=== PATIENT | female | born 1955 | race Asian ===

== ENCOUNTER 2016-12-31 08:25 | Inpatient (IN) | payer OTHER ==
--- NOTE | 2016-12-21 23:36 | HP ---
HISTORY AND PHYSICAL: DATE OF ADMISSION/SURGERY: 12/31/16 SURGEON: Joana Stoddard MD * (DICTATED BY MARTHA MAKI) PROCEDURE: Left total knee arthroplasty. CHIEF COMPLAINT: Left knee pain. HISTORY OF PRESENT ILLNESS: Ms. Lau is a 61-year-old female with complaints of left knee pain secondary to advanced osteoarthritis. She has failed conservative management and has elected to proceed with a left total knee arthroplasty, which is scheduled for 12/31/[address] Stoddard. PAST MEDICAL HISTORY: Obesity, sleep apnea, diabetes, and osteoarthritis. PAST SURGICAL HISTORY: Right knee arthroscopy. CURRENT MEDICATIONS: 1. Metformin 500 mg twice a day. 2. Lovastatin 40 mg q.h.s. 3. Lantus 100 units/mL as directed. 4. Humalog 100 units/mL sliding scale. 5. Telmisartan 40 mg once a day. 6. Voltaren gel. ALLERGIES: PENICILLIN and CODEINE. CODEINE causes nausea and vomiting. FAMILY HISTORY: Uterine cancer. SOCIAL HISTORY: She is a 61-year-old female. She lives with her . She does not smoke, use drugs, or alcohol. She is a speech language pathology assistant. REVIEW OF SYSTEMS: A complete 14-point review of systems was reviewed with the patient, it was positive for diabetes. PHYSICAL EXAMINATION GENERAL: She is well developed, well nourished, in no acute distress. VITAL SIGNS: She stands 5 feet 8 inches tall, weighs 220 pounds. Her blood pressure is 123/80, her heart rate is 78. HEENT: Normocephalic, atraumatic. NECK: Supple. PULMONARY: The lungs are clear to auscultation bilaterally. CARDIO: Regular rate and rhythm. Strong S1, S2. ABDOMEN: Soft, nontender, and nondistended. MUSCULOSKELETAL: Left lower extremity, the skin is intact. There are no open wounds or abrasions. She has a moderate joint effusion. Tenderness over the medial and lateral joint line. No varus or valgus instability. 0 to 125 degrees flexion. 2+ dorsalis pedis pulses, intact sensation. Her lower extremity muscle group strengths are intact at 5/5. NEUROLOGICAL: Alert and oriented x3. Cranial nerves II through XII are intact. ASSESSMENT AND PLAN: Ms. Lau is a 61-year-old female with severe degenerative osteoarthritis of her left knee. She has failed conservative management and has elected to proceed with a left total knee arthroplasty, which is scheduled for 12/31/[address] Stoddard discussed the risks and benefits of the surgery at today's visit and all of her questions were answered. Coumadin, Percocet, and Colace were sent to her pharmacy for postoperative pain control and DVT prophylaxis. She will see Dr. Stoddard back 2 weeks after the surgery. MARTHA MAKI [id number]/[facility] #: [id number] MTDBriana
[~2016-12-31 08:25] MED LIST: Buffered Lidocaine 0.9% SYRIN* 5 ML/SYR SYRINGE INTRADERM ONE; Sodium Citrate/Citric Acid* 15 ML UDC PO ONE
[2016-12-31] MEDS ORDERED: Clindamycin 900 MG IVPREMIX(* 900 MG/50 ML SDV IV ONE (08:45)
[2016-12-31] MEDS ORDERED: Sodium Citrate/Citric Acid* 15 ML UDC ONE (08:45)
[2016-12-31] MEDS ORDERED: Midazolam* 1 MG/ML 2 ML VIAL (2 MG) ONE (11:54)
[2016-12-31] MEDS ORDERED: Morphine PF AMP (0.5MG/ML)* 5 MG/10 ML AMP ONE (11:58)
[2016-12-31] MEDS ORDERED: Propofol* 10 MG/ML 20 ML BTL IV PUSH ONE (12:49)
[2016-12-31] MEDS ORDERED: Naloxone* 0.4 MG/ML 1 ML VIAL IV PRN (13:11)
[2016-12-31] MEDS ORDERED: Ondansetron INJ* 2 MG/ML VIAL IV PRN (13:11)
[2016-12-31] MEDS ORDERED: Bupivacaine 0.5% SDV PF* 30 ML VIAL ONE (14:00)
[2016-12-31] MEDS ORDERED: Phenylephrine IV* 40 MCG/ML 10 ML SYRINGE ONE (14:19)
[2016-12-31] MEDS ORDERED: Phenylephrine INJ* 10 MG/ML 1 ML VIAL (10 MG) ONE (14:19)
[2016-12-31] MEDS ORDERED: Magnesium Hydroxide LIQ* 30 ML UDC PO PRN (14:55)
[2016-12-31] MEDS ORDERED: Acetaminophen TAB* 325 MG PO PRN (14:55)
[2016-12-31] MEDS ORDERED: Polyethylene Glycol 3350* 17 GM PACKET PO PRN (14:55)
[2016-12-31] MEDS ORDERED: diPHENhydraMINE IV* 50 MG/ML 1 ml VIAL (BENADRYL) IV PRN (14:55)
[2016-12-31] MEDS ORDERED: Bisacodyl SUPP* 10 MG SUPP PR PRN (14:55)
[2016-12-31] MEDS ORDERED: Ondansetron INJ* 2 MG/ML VIAL ONE (14:56)
[2016-12-31] MEDS ORDERED: DiMENhydriNATE IV* 50 MG/ML VIAL ONE (15:18)
[2016-12-31] MEDS ORDERED: Dextrose 50% Syringe 50 ML* 25 GM/50 ML SYRINGE IV PUSH PRN (15:31)
--- NOTE | 2016-12-31 15:37 | RAD ---
INDICATION: Left total knee replacement COMPARISON: December 21, 2016 TECHNIQUE: A two-view portable examination is submitted. FINDINGS: There is interval left knee arthroplasty. Both femoral and tibial components appear well seated. There is an overlying cooling jacket. IMPRESSION: LEFT KNEE ARTHROPLASTY.
[2016-12-31] MEDS ORDERED: Insulin LISPRO* 1 UNITS UNIT SUBCUT SCH (18:00)
[2016-12-31] MEDS: Insulin LISPRO* 1 UNITS UNIT SUBCUT SCH ×3 (19:54→23:33)
[2016-12-31] MEDS ORDERED: Scopolamine 1.5 mg* PATCH TRANSDERM SCH (20:00)
[2016-12-31] MEDS ORDERED: Metoclopramide IV* 5 MG/ML 2 ML VIAL IV ONE (20:00)
[2016-12-31] MEDS ORDERED: Warfarin TAB(*) 6 MG PO ONE (20:00)
[2016-12-31] MEDS: Insulin GLARGINE(*) 1 UNITS UNIT SUBCUT SCH (20:13)
[2016-12-31] MEDS ORDERED: Metformin ER (NF) 500 MG TAB PO SCH (21:00)
[2016-12-31] MEDS ORDERED: Morphine INJ* 2 MG/ML 1 ML SYRINGE ONE (21:10)
[2016-12-31] MEDS: Clindamycin 600 MG IVPREMIX(* 600 MG/50 ML SDV IV SCH (21:34)
[2016-12-31] MEDS: Docusate CAP* 100 MG PO SCH (21:43)
[2016-12-31] MEDS: Morphine INJ* 2 MG/ML 1 ML SYRINGE IV PRN (23:01)
[2016-12-31] MEDS: HYDROcodone/ACETAMIN 5-325 MG* 1 TAB PO PRN (23:37)
[2017-01-01] MEDS: HYDROcodone/ACETAMIN 5-325 MG* 1 TAB PO PRN (03:35)
[2017-01-01] MEDS: Morphine INJ* 2 MG/ML 1 ML SYRINGE IV PRN ×2 (03:36→21:07)
[2017-01-01] MEDS: Insulin LISPRO* 1 UNITS UNIT SUBCUT SCH ×6 (03:49→18:49)
[2017-01-01] MEDS ORDERED: oxyCODONE/Acetamin 5/325 MG* TAB PO PRN (04:10)
[2017-01-01] MEDS: Clindamycin 600 MG IVPREMIX(* 600 MG/50 ML SDV IV SCH ×2 (04:31→11:39)
[2017-01-01 06:29] LABS: Hematocrit 31 % (35-47); Hemoglobin 9.9 g/dl (12.0-16.0)
[2017-01-01 06:40] LABS: Calcium 8.6 mg/dL (8.6-10.3); EGFR African American 185.7 (>60); EGFR Non-African American 144.4 (>60); Potassium 4.1 mmol/L (3.5-5.0)
[2017-01-01] MEDS: Ondansetron INJ* 2 MG/ML VIAL IV PRN ×2 (07:34→12:25)
[2017-01-01] MEDS: oxyCODONE/Acetamin 5/325 MG* TAB PO PRN ×4 (07:34→21:00)
--- NOTE | 2017-01-01 07:46 | PN ---
Progress Note - Progress Note Date of Service: 01/01/17 SOAP: Subjective: Pt. c/o nausea and vomiting. Objective: LLE - drain removed, tip intact, distally +df/pf, full sens lt, 2+ dp pulse. Vital Signs: Temp Pulse Resp BP Pulse Ox 97.9 F 69 18 156/83 98 01/01/17 03:30 01/01/17 03:30 01/01/17 07:34 01/01/17 03:30 01/01/17 03:30 Laboratory Results - last 24 hr 12/31/16 12/31/16 12/31/16 08:53 12:25 15:16 Hgb Hct INR (Anticoag Therapy) Sodium Potassium Chloride Carbon Dioxide Anion Gap BUN Creatinine Est GFR ( Amer) Est GFR (Non-Af Amer) BUN/Creatinine Ratio Glucose POC Glucose (mg/dL) 253 H 238 H 186 H Calcium 12/31/16 12/31/16 01/01/17 19:55 23:23 03:40 Hgb Hct INR (Anticoag Therapy) Sodium Potassium Chloride Carbon Dioxide Anion Gap BUN Creatinine Est GFR ( Amer) Est GFR (Non-Af Amer) BUN/Creatinine Ratio Glucose POC Glucose (mg/dL) 289 H 276 H 238 H Calcium 01/01/17 01/01/17 01/01/17 06:04 06:04 06:04 Hgb 9.9 L Hct 31 L INR (Anticoag Therapy) 0.99 Sodium 129 L Potassium 4.1 Chloride 98 L Carbon Dioxide 23 Anion Gap 8 BUN 11 Creatinine 0.44 L Est GFR ( Amer) 185.7 Est GFR (Non-Af Amer) 144.4 BUN/Creatinine Ratio 25.0 H Glucose 215 H POC Glucose (mg/dL) Calcium 8.6 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
[2017-01-01] MEDS ORDERED: PROCHLORPERAZINE INJ 5 MG/ML 2 ML VIAL IV PRN (08:30)
[2017-01-01] MEDS ORDERED: PROCHLORPERAZINE INJ 5 MG/ML 2 ML VIAL ONE (08:31)
[2017-01-01] MEDS: Losartan TAB* 25 MG PO SCH (08:50)
[2017-01-01] MEDS: Docusate CAP* 100 MG PO SCH ×2 (08:50→21:00)
[2017-01-01] MEDS: Atorvastatin* 20 MG TAB PO SCH (08:50)
[2017-01-01] MEDS: Enoxaparin(*) 30 MG/0.3 ML SYR SUBCUT SCH (11:38)
--- NOTE | 2017-01-01 13:26 | OP ---
OPERATIVE REPORT: DATE OF OPERATION: 12/31/16 DATE OF : 51 SURGEON: Joana Stoddard MD SOAP DRIER OPERATOR: MARTHA Foster Ms. Aryan did help throughout the procedure with preparation of the leg, wound retraction, manipulation of the knee, and wound closure. ANESTHESIOLOGIST: Ilya Clinton DO ANESTHESIA: Spinal. PRE-OP DIAGNOSIS: Severe end-stage degenerative osteoarthritis of the left knee joint. POST-OP DIAGNOSIS: Severe end-stage degenerative osteoarthritis of the left knee joint. OPERATIVE PROCEDURE: Left total knee arthroplasty. INDICATIONS: Ms. Lau is a 61-year-old female with years of increasingly severe left knee pain. She failed conservative treatment with anti-inflammatories, pain medication, intraarticular injection, and physical therapy. Radiographs showed [id number] arthritis, which are quite severe. Due to continued pain and decreased quality of life, she elected to undergo left total knee arthroplasty. Informed consent was obtained from the patient. She understood the risks of the surgery included, but were not limited to bleeding, infection, damage to nearby structures, continued pain, need for further surgery, intraoperative fracture, nerve palsy, hardware failure or loosening, knee stiffness, loss of motion, stroke, heart attack, blood clot, and . She wished to proceed. TOURNIQUET TIME: 53 minutes. COMPLICATIONS: None. ESTIMATED BLOOD LOSS: 200 cc. SPECIMEN: Bone and cartilage from the left knee joint. HARDWARE USED: This is cemented [employer] total knee arthroplasty hardware. Two packages of Simplex bone cement were used. For the femur, a left posterior stabilized Oxinium femoral component. For the tibia, a size 2 left tibial baseplate. For the insert, a 13-mm posterior stabilized articular insert size 1/2 and for the patella, a 29-mm 7.5 thickness 3-peg All poly patella. INTRAOPERATIVE FINDINGS: Intraoperatively, the patient was noted to have severe tricompartmental arthritis with complete loss of cartilage. DESCRIPTION OF PROCEDURE: Ms. Lau was identified in the preanesthesia unit. Her left lower extremity was marked as the correct operative side. Informed consent was signed and placed in the chart. The patient was taken to the operating room and placed under spinal anesthesia. A [place] catheter was placed. Tourniquet was placed on the left thigh. Left lower extremity was prepped and draped in the usual sterile fashion. Preop time-out was made to correctly identify the patient's side and site. Appropriate perioperative antibiotics were given within 1 hour of incision. Tourniquet was inflated until tourniquet time for this procedure was 53 minutes. A 10 blade was used to make a 12-cm midline incision and was carried down to the extensor mechanism. A new 10 blade was used to make a standard medial parapatellar arthrotomy and the patella was subluxed laterally. Electrocautery was used to subperiosteally elevate soft tissue off the superomedial tibia to the mid sagittal plane. The knee was flexed up. The anterior horn of the lateral meniscus and ACL were sharply released. A drill was used to enter the distal femur. Intramedullary distal femoral cutting guide was pinned on the distal femur and pinned in to place. 9 mm of distal femur bone was carefully removed with an oscillating saw. The external rotation guide was pinned on the distal femur and the distal femur was sized to a size 2. Size 2 multi-cutting jig was pinned on the distal femur. The oscillating saw was used to make the appropriate 4 chamfer cuts. The PCL was completely released. The extramedullary tibial cutting guide was pinned on the proximal tibia. The oscillating saw was used to make the proximal tibial cut perpendicular to the mechanical axis of the tibia. The bone was carefully removed. The knee was brought out into full extension. There was satisfactory alignment and the spacer block fit nicely. There was good medial and lateral ligamentous balancing. Flexion and extension gaps were well balanced. The knee was flexed up. A lamina landfill gas technician was placed both medially and laterally. Any remaining meniscus was sharply removed using electrocautery. Curved osteotome was used to remove any posterior osteophytes. Tibial tray and drop augusta once again confirmed satisfactory proximal tibial cut. A size 2 left femoral trial was impacted on to the distal femur and had good fit. The box for the posterior stabilized implant was prepared using a reamer and box cut osteotome. Size 2 tibial tray with an 11 mm insert trial was chosen. The knee was taken through a range of motion. The knee had full extension and 130 degrees of flexion. There was satisfactory patellofemoral tracking. The patella was everted. 7 mm of patellar bone and cartilage was carefully removed using an oscillating saw. The patella was sized to a size 29. Three peg holes were drilled through the size 29 guide. 29 trial was placed and the knee was taken through a range of motion. There was satisfactory patellofemoral tracking. All trials were carefully removed. The tibia was sized to a size 2. Proximal tibia was prepared using a size 2 keel punch. All bony cut surfaces were copiously irrigated with sterile saline and dried. Final implants were cemented into place starting with the tibia, followed by the femur, and lastly the patella. 13-mm insert trial was placed and the knee was brought out into full extension. Tourniquet was deflated at 53 minutes. The knee was copiously irrigated with sterile saline. The cement was allowed to fully cure, and the insert trial was removed. Any excess cement was carefully removed from around the implant and capsule. Electrocautery was used to obtain meticulous hemostasis. Final insert chosen was a 13-mm posterior stabilized articular insert. This was locked into position on the tibial tray without difficulty. Stability of the insert was checked and rechecked and noted to be stable. Final range of motion with full extension to 130 degrees of flexion. The extensor mechanism was closed over a medium Hemovac drain using interrupted #1 Vicryl's. The rest of the incision was closed in a layered fashion using 0 and 2 -0 Vicryl's. Skin was closed using running 3-0 nylon suture. Sterile Xeroform, 4x4s, and Webril were used to cover the incision. Dayron wrap and cold pack were placed over this. The patient's anesthesia was reversed without difficulty. She was taken to the PACU in stable condition. Intended weightbearing will be weightbearing as tolerated. Intended DVT prophylaxis will be Coumadin with a Lovenox bridge. [id number]/[facility] #: [id number] [facility] SYSTEMBriana
[2017-01-01] MEDS: oxyCODONE TAB* 5 MG TAB PO PRN (13:46)
[2017-01-01] MEDS ORDERED: Warfarin TAB(*) 4 MG PO ONE (17:00)
[2017-01-01] MEDS: Insulin GLARGINE(*) 1 UNITS UNIT SUBCUT SCH (21:01)
[2017-01-02] MEDS: Morphine INJ* 2 MG/ML 1 ML SYRINGE IV PRN (01:01)
[2017-01-02] MEDS: oxyCODONE TAB* 5 MG TAB PO PRN ×4 (01:02→20:46)
[2017-01-02] MEDS: oxyCODONE/Acetamin 5/325 MG* TAB PO PRN ×4 (05:10→23:06)
[2017-01-02 07:00] LABS: Hematocrit 29 % (35-47); Hemoglobin 9.3 g/dl (12.0-16.0)
[2017-01-02] MEDS: Insulin LISPRO* 1 UNITS UNIT SUBCUT SCH ×6 (08:16→20:40)
[2017-01-02] MEDS: Losartan TAB* 25 MG PO SCH (09:15)
[2017-01-02] MEDS: Docusate CAP* 100 MG PO SCH ×2 (09:15→20:47)
[2017-01-02] MEDS: Atorvastatin* 20 MG TAB PO SCH (09:15)
--- NOTE | 2017-01-02 10:27 | PN ---
Progress Note - Progress Note Date of Service: 01/02/17 SOAP: Subjective: Pt. is alert, reports n/v improved. Pain is moderate. Objective: LLE - dressing changed, inc c/d/i. distally nvi. min effusion at knee. Vital Signs: Temp Pulse Resp BP Pulse Ox 98.5 F 78 18 156/62 93 01/02/17 07:26 01/02/17 07:26 01/02/17 10:18 01/02/17 07:26 01/02/17 08:00 Laboratory Results - last 24 hr 01/01/17 01/01/17 01/02/17 12:03 16:56 00:42 Hgb Hct INR (Anticoag Therapy) POC Glucose (mg/dL) 258 H 214 H 262 H 01/02/17 01/02/17 01/02/17 06:44 06:44 08:01 Hgb 9.3 L Hct 29 L INR (Anticoag Therapy) 1.22 H POC Glucose (mg/dL) 274 H Assessment: 61 yo F pod 2 s/p LTKA Plan: wbat pt/ot -steps today 8 mg coumadin tonight, lovenox today plan d/c to home tomorrow.
[2017-01-02] MEDS ORDERED: Dextrose 50% Syringe 50 ML* 25 GM/50 ML SYRINGE IV PUSH PRN (10:31)
[2017-01-02] MEDS: Enoxaparin(*) 30 MG/0.3 ML SYR SUBCUT SCH (12:07)
[2017-01-02] MEDS: Ondansetron INJ* 2 MG/ML VIAL IV PRN (17:04)
[2017-01-02] MEDS ORDERED: Ondansetron ODT TAB* 4 MG ONE (17:07)
[2017-01-02] MEDS: metFORMIN* 1,000 MG TAB PO SCH (17:33)
[2017-01-02] MEDS: Warfarin TAB(*) 4 MG PO SCH (17:33)
[2017-01-02] MEDS ORDERED: Ondansetron ODT TAB* 4 MG PO PRN (18:08)
[2017-01-02] MEDS: Insulin GLARGINE(*) 1 UNITS UNIT SUBCUT SCH (20:47)
[2017-01-03] MEDS: oxyCODONE TAB* 5 MG TAB PO PRN (00:58)
[2017-01-03] MEDS: oxyCODONE/Acetamin 5/325 MG* TAB PO PRN ×2 (03:33→09:21)
[2017-01-03 06:46] LABS: Hematocrit 26 % (35-47); Hemoglobin 8.7 g/dl (12.0-16.0); Mean Corpuscular HGB Conc 33 g/dl (31-36); Mean Corpuscular Hemoglobin 28 pg (27-31); Mean Corpuscular Volume 84 fL (80-97); Mean Platelet Volume 8 um3 (7.4-10.4); Red Blood Count 3.11 10^6/ul (4.0-5.4); Red Cell Distribution Width 16 % (10.5-15); White Blood Count 9.9 10^3/ul (3.5-10.8)
[2017-01-03 07:01] LABS: BUN/Creatinine Ratio 22.2 (8-20); Calcium 8.2 mg/dL (8.6-10.3); EGFR Non-African American 140.7 (>60); Potassium 3.8 mmol/L (3.5-5.0)
[2017-01-03] MEDS: Insulin LISPRO* 1 UNITS UNIT SUBCUT SCH ×7 (08:24→22:25)
[2017-01-03] MEDS: metFORMIN* 1,000 MG TAB PO SCH ×2 (08:24→17:05)
--- NOTE | 2017-01-03 08:29 | PN ---
Progress Note - Progress Note Date of Service: 01/03/17 SOAP: Subjective: POD #3 Left TKA, doing well. C/o nausea at this time but given Zofran with good relief. Denies CP/SOB, f/c or calf pain Objective: Vitals: Temp Pulse Resp BP Pulse Ox 98.3 F 77 16 113/57 94 01/03/17 03:26 01/03/17 03:26 01/03/17 05:33 01/03/17 03:26 01/03/17 03:26 Gen: A&Ox2, NAD at rest sitting in chair LLE: Dressing C/D/I, calf and thigh soft, NT. +f/e at ankle, MTPs. Sensation intact. DP 2+ Labs: Laboratory Results - last 24 hr 01/02/17 01/02/17 01/02/17 11:40 16:52 20:35 WBC RBC Hgb Hct MCV MCH MCHC RDW Plt Count MPV Neut % (Auto) Lymph % (Auto) Blanco % (Auto) Eos % (Auto) Baso % (Auto) Absolute Neuts (auto) Absolute Lymphs (auto) Absolute Monos (auto) Absolute Eos (auto) Absolute Basos (auto) Absolute Nucleated RBC Nucleated RBC % INR (Anticoag Therapy) Sodium Potassium Chloride Carbon Dioxide Anion Gap BUN Creatinine Est GFR ( Amer) Est GFR (Non-Af Amer) BUN/Creatinine Ratio Glucose POC Glucose (mg/dL) 211 H 140 H 114 H Calcium 01/03/17 01/03/17 01/03/17 06:15 06:15 06:15 WBC 9.9 RBC 3.11 L Hgb 8.7 L Hct 26 L MCV 84 MCH 28 MCHC 33 RDW 16 H Plt Count 208 MPV 8 Neut % (Auto) 68.8 Lymph % (Auto) 22.4 L Blanco % (Auto) 7.9 Eos % (Auto) 0.6 Baso % (Auto) 0.3 Absolute Neuts (auto) 6.8 Absolute Lymphs (auto) 2.2 Absolute Monos (auto) 0.8 Absolute Eos (auto) 0.1 Absolute Basos (auto) 0 Absolute Nucleated RBC 0.01 Nucleated RBC % 0.1 INR (Anticoag Therapy) 1.25 H Sodium 132 L Potassium 3.8 Chloride 99 L Carbon Dioxide 27 Anion Gap 6 BUN 10 Creatinine 0.45 L Est GFR ( Amer) 181.0 Est GFR (Non-Af Amer) 140.7 BUN/Creatinine Ratio 22.2 H Glucose 190 H POC Glucose (mg/dL) Calcium 8.2 L 08/06/17 07:33 WBC RBC Hgb Hct MCV MCH MCHC RDW Plt Count MPV Neut % (Auto) Lymph % (Auto) Blanco % (Auto) Eos % (Auto) Baso % (Auto) Absolute Neuts (auto) Absolute Lymphs (auto) Absolute Monos (auto) Absolute Eos (auto) Absolute Basos (auto) Absolute Nucleated RBC Nucleated RBC % INR (Anticoag Therapy) Sodium Potassium Chloride Carbon Dioxide Anion Gap BUN Creatinine Est GFR ( Amer) Est GFR (Non-Af Amer) BUN/Creatinine Ratio Glucose POC Glucose (mg/dL) 198 H Calcium Assessment: POD #3 Left TKA Plan: Anticipate d/c home today, will add Oxycontin SR 10mg BID for 5 days, Zofran 4mg as needed INR 1.25 today, 8mg Coumadin tonight F/u with Dr. Stoddard 10-14 days post op
[2017-01-03] MEDS ORDERED: oxyCODONE SR TAB(*) 10 MG TAB.SR PO ONE (09:17)
[2017-01-03] MEDS: Atorvastatin* 20 MG TAB PO SCH (09:21)
[2017-01-03] MEDS: Docusate CAP* 100 MG PO SCH ×2 (09:21→22:25)
[2017-01-03] MEDS: Losartan TAB* 25 MG PO SCH (09:22)
[2017-01-03] MEDS ORDERED: Scopolamine 1.5 mg* PATCH TRANSDERM SCH (10:00)
--- NOTE | 2017-01-03 10:50 | PN ---
Subjective - Subjective Reason for Note: Progress Note History: Internal medicine. Day 3 post left TKA. She is vomiting in front of me copiously. She is opioid naieve and is not tolerating oxycodone. Her pain can be moderate to severe. Neither ondansetron, nor a scopolamine patch are helping. Her glucose level is improves since increasing the lantus insulin. Active Problems: Active Problems Left knee pain (Acute) M25.562 Nausea & vomiting (Acute) R11.2 Status post total left knee replacement (Acute) Z96.652 Type 2 diabetes mellitus, uncontrolled (Acute) E11.65 Hypertension (Chronic) I10 Morbid obesity with BMI of 45.0-49.9, adult (Chronic) E66.01, Z68.42 Osteoarthritis (Chronic) M19.90 Sleep apnea (Chronic) G47.30 Current Medications: Current Medications Acetaminophen (Tylenol Tab*) 650 mg PO Q4H PRN PRN Reason: PAIN OR TEMPERATURE Last Admin: 01/02/17 01:01 Dose: 650 mg Atorvastatin Calcium (Lipitor*) 20 mg PO DAILY [facility] PRN Reason: Protocol Last Admin: 01/03/17 09:21 Dose: 20 mg Bisacodyl (Dulcolax Supp*) 10 mg ID DAILY PRN PRN Reason: constipation Dextrose (D50w Syringe 50 Ml*) 12.5 gm IV PUSH .FOR FS < 60 - SS PRN PRN Reason: FS < 60 Diphenhydramine HCl (Benadryl Iv*) 12.5 mg IV Q6H PRN PRN Reason: PRURITIS Docusate Sodium (Colace Cap*) 100 mg PO BID [facility] Last Admin: 01/03/17 09:21 Dose: 100 mg Enoxaparin Sodium (Lovenox(*)) 30 mg SUBCUT Q24H [facility] Last Admin: 01/02/17 12:07 Dose: 30 mg Insulin Glargine (Lantus(*)) 24 units SUBCUT BEDTIME [facility] Last Admin: 01/02/17 20:47 Dose: 24 units Insulin Human Lispro (Humalog*) 0 - 20 units SUBCUT AC [facility] Last Admin: 01/03/17 08:24 Dose: 10 units Insulin Human Lispro (Humalog*) 0 units SUBCUT ACHS [facility] PRN Reason: Protocol Last Admin: 01/03/17 08:24 Dose: 3 units Lactulose (Lactulose*) 30 ml PO Q6H PRN PRN Reason: constipation Losartan Potassium (Cozaar Tab*) 50 mg PO QAM LIBRADO PRN Reason: Protocol Last Admin: 01/03/17 09:22 Dose: 50 mg Magnesium Hydroxide (Milk Of Magnesia Liq*) 30 ml PO Q6H PRN PRN Reason: constipation Last Admin: 01/02/17 09:15 Dose: 30 ml Metformin HCl (Glucophage*) 1,000 mg PO BID WITH MEALS [facility] Last Admin: 01/03/17 08:24 Dose: 1,000 mg Morphine Sulfate (Morphine Inj (Syringe)*) 2 mg IV Q2H PRN PRN Reason: PAIN Last Admin: 01/02/17 01:01 Dose: 2 mg Morphine Sulfate (Morphine Inj (Syringe)*) 2 mg IV Q1H PRN PRN Reason: PAIN > 6/10 Last Admin: 01/01/17 03:36 Dose: 2 mg Ondansetron HCl (Zofran Inj*) 4 mg IV Q6H PRN PRN Reason: nausea Last Admin: 01/01/17 12:25 Dose: 4 mg Ondansetron HCl (Zofran Odt Tab*) 4 mg PO Q6H PRN PRN Reason: NOT SPECIFIED Last Admin: 01/03/17 08:08 Dose: 4 mg Oxycodone HCl (Roxycodone Tab*) 10 mg PO Q4H PRN PRN Reason: SEVERE PAIN Last Admin: 01/03/17 00:58 Dose: 10 mg Oxycodone/Acetaminophen (Percocet 5/325 Tab*) 1 tab PO Q3H PRN PRN Reason: PAIN - MODERATE Oxycodone/Acetaminophen (Percocet 5/325 Tab*) 2 tab PO Q3H PRN PRN Reason: PAIN - MODERATE Last Admin: 01/03/17 09:21 Dose: 2 tab Pharmacy Profile Note (Coumadin Daily Reminder*) 1 note FOLLOW UP 1700 LIBRADO Last Admin: 01/02/17 17:34 Dose: 1 note Pharmacy Profile Note (Scopolomine Patch Remove*) 1 note PATCH OFF Q72H [facility] Pharmacy Profile Note (Scopolomine Patch Remove*) 1 note PATCH OFF Q72H [facility] Polyethylene Glycol/Electrolytes (Miralax*) 17 gm PO DAILY PRN PRN Reason: Constipation Prochlorperazine Edisylate (Compazine Inj*) 10 mg IV Q6H PRN PRN Reason: NAUSEA/VOMITING Last Admin: 01/01/17 16:31 Dose: 10 mg Scopolamine (Transderm-Scop 1.5 Mg Patch*) 1 patch TRANSDERM Q72H [facility] Last Admin: 12/31/16 20:07 Dose: 1 patch Scopolamine (Transderm-Scop 1.5 Mg Patch*) 1 patch TRANSDERM Q72H [facility] Last Admin: 01/03/17 09:37 Dose: 1 patch Warfarin Sodium (Coumadin Tab(*)) 8 mg PO DAILY@1700 LIBRADO PRN Reason: Protocol Last Admin: 01/02/17 17:33 Dose: 8 mg Home Medications: Home Medications Medication Instructions Recorded Confirmed Type Insulin Lispro [Humalog Kwikpen] 20 unit SUBCUT AC 10/27/13 12/31/16 History Lovastatin 40 mg PO BID 10/27/13 12/31/16 History Metformin HCl [Metformin HCl ER] 2 tab PO BID 10/27/13 12/31/16 History Telmisartan [Micardis] 40 mg PO QAM 10/27/13 12/31/16 History zzInsulin GLARGINE(*) [zzLantus(*)] 20 units SUBCUT BEDTIME 10/27/13 12/31/16 History Docusate CAP* [Colace Cap*] 100 mg PO BID cap 01/03/17 Rx Ondansetron ODT TAB* [Zofran 4 MG 4 mg PO Q6H PRN #0 tab 01/03/17 Rx Odt TAB*] Warfarin TAB(*) [Coumadin TAB(*)] 8 mg PO DAILY@1700 tab 01/03/17 Rx metFORMIN* [Glucophage 1000 MG TAB 1,000 mg PO BID WITH MEALS tab 01/03/17 Rx *] oxyCODONE SR TAB(*) [Oxycontin 10 10 mg PO Q12HR #10 tab.sr MDD 2 01/03/17 Rx mg (*)] oxyCODONE/Acetamin 5/325 MG* 1 tab PO Q3H PRN #0 tab MDD 30 01/03/17 Rx [Percocet 5/325 TAB*] oxyCODONE/Acetamin 5/325 MG* 2 tab PO Q3H PRN #0 tab MDD 30 01/03/17 Rx [Percocet 5/325 TAB*] Allergies: Allergies Allergy/AdvReac Type Severity Reaction Status Date / Time Codeine Allergy Unknown Verified 12/31/16 08:50 Reaction Details Penicillins Allergy Unknown Verified 12/31/16 08:50 Reaction Details Aspirin AdvReac GI Upset Verified 12/31/16 08:50 Phenolphthalein, Yellow AdvReac Unknown Verified 12/31/16 08:50 [From Reaction Ex-Lax(phenolphthalein)] Details Objective - Vital Signs Vital Signs: Vital Signs 01/02/17 01/02/17 01/02/17 11:19 12:18 13:07 Temperature 98.0 F Pulse Rate 79 Respiratory 16 18 18 Rate Blood Pressure 151/68 (mmHg) O2 Sat by Pulse 94 Oximetry 01/02/17 01/02/17 01/02/17 15:07 15:39 16:00 Temperature Pulse Rate Respiratory 18 16 Rate Blood Pressure (mmHg) O2 Sat by Pulse 94 Oximetry 01/02/17 01/02/17 01/02/17 16:01 17:39 18:39 Temperature 98.8 F Pulse Rate 78 Respiratory 16 18 Rate Blood Pressure 142/68 (mmHg) O2 Sat by Pulse 96 96 Oximetry 01/02/17 01/02/17 01/02/17 19:20 20:01 20:46 Temperature 98.2 F Pulse Rate 80 Respiratory 18 17 16 Rate Blood Pressure 131/55 (mmHg) O2 Sat by Pulse 98 Oximetry 01/02/17 01/02/17 01/02/17 22:46 23:06 23:09 Temperature 98.2 F Pulse Rate 80 Respiratory 16 18 16 Rate Blood Pressure 145/62 (mmHg) O2 Sat by Pulse 95 Oximetry 01/03/17 01/03/17 01/03/17 00:58 01:06 02:58 Temperature Pulse Rate Respiratory 18 16 14 Rate Blood Pressure (mmHg) O2 Sat by Pulse Oximetry 01/03/17 01/03/17 01/03/17 03:26 03:33 05:33 Temperature 98.3 F Pulse Rate 77 Respiratory 16 16 16 Rate Blood Pressure 113/57 (mmHg) O2 Sat by Pulse 94 Oximetry 01/03/17 01/03/17 01/03/17 07:34 08:00 09:21 Temperature 97.9 F Pulse Rate 72 Respiratory 16 16 16 Rate Blood Pressure 119/56 (mmHg) O2 Sat by Pulse 94 94 Oximetry 01/03/17 09:36 Temperature Pulse Rate Respiratory 18 Rate Blood Pressure (mmHg) O2 Sat by Pulse Oximetry - Intake and Output Intake and Output: Intake & Output 12/31/16 01/01/17 01/02/17 01/03/17 11:59 11:59 11:59 11:59 Intake Total 3087 3282 1615 Output Total 1900 1850 1475 Balance 1187 1432 140 Weight 224 lb Intake: IV Fluids 2433 1227 LR 2433 1227 IVPB 54 965 ABX - CLINDAMYCIN 54 114 LR 851 Oral 600 1090 1615 Output: Urine 1850 1475 [place] 1225 Emesis 575 Estimated Blood Loss 100 Other: # Bowel Movements 1 Estimated Stool Amount Small ADLs: Meal Record Start: 12/31/16 19: 09 Freq: Status: Active Created 12/31/16 19:09 [id number] (Rec: 12/31/16 19:09 [id number] SSU-C09) Document 01/01/17 09:41 [id number] (Rec: 01/01/17 09:43 [id number] SSU-C05) Document 01/01/17 22:00 [id number] (Rec: 01/01/17 22:38 [id number] SSU-C06) Document 01/02/17 08:00 [id number] (Rec: 01/02/17 08:17 [id number] SSU-C19) Document 01/02/17 13:19 [id number] (Rec: 01/02/17 13:19 [id number] SSU-C01) Document 01/02/17 17:57 [id number] (Rec: 01/02/17 17:57 CPU2848 SSU-C11) Document 01/03/17 09:33 [id number] (Rec: 01/03/17 09:33 [id number] SSU-C19) Intake and Output Start: 12/31/16 14: 55 Freq: 06,14,2200 Status: Complete Created 12/31/16 15:02 [id number] (Rec: 12/31/16 15:02 BKG LEONARDO-BG10) Intake and Output Start: 12/31/16 19: 09 Freq: DAILY@0600,1400,2200 Status: Active Created 12/31/16 19:09 [id number] (Rec: 12/31/16 19:09 [id number] SSU-C09) Document 12/31/16 19:30 IBH0652 (Rec: 12/31/16 23:55 [id number] SSU-C49) Document 12/31/16 19:45 [id number] (Rec: 12/31/16 19:46 SST7904 SSU-C09) Document 12/31/16 20:30 OPC9503 (Rec: 12/31/16 23:56 MTG4804 SSU-C49) Document 12/31/16 23:53 KPX4621 (Rec: 12/31/16 23:53 UCK6247 SSU-C49) Document 01/01/17 06:00 KZV9179 (Rec: 01/01/17 06:15 KVB5707 SSU-C19) Document 01/01/17 11:44 ORI8437 (Rec: 01/01/17 11:44 ORD0940 SSU-M01) Document 01/01/17 14:00 BQD4602 (Rec: 01/01/17 15:25 VXT5553 SSU-C03) Document 01/01/17 16:26 ATQ1479 (Rec: 01/01/17 16:27 VLE1914 SSU-C19) Document 01/01/17 20:36 BJU1520 (Rec: 01/01/17 20:36 [id number] SSU-C19) Document 01/01/17 22:00 DIB3661 (Rec: 01/01/17 22:38 XPZ9158 SSU-C06) Document 01/01/17 22:53 [id number] (Rec: 01/01/17 22:53 [id number] SSU-C19) Document 01/02/17 01:06 MQH6197 (Rec: 01/02/17 01:06 XFC5258 SSU-M08) Document 01/02/17 04:10 XHF0356 (Rec: 01/02/17 04:11 AUV0096 SSU-M10) Document 01/02/17 05:02 HTM6221 (Rec: 01/02/17 05:02 QVG2446 SSU-C19) Document 01/02/17 06:24 OWE5250 (Rec: 01/02/17 06:24 RHK5482 SSU-C20) Document 01/02/17 09:16 HKL0887 (Rec: 01/02/17 09:17 UAS4965 SSU-M01) Document 01/02/17 09:48 [id number] (Rec: 01/02/17 09:48 QAF5056 SSU-C01) Document 01/02/17 13:18 ORS2248 (Rec: 01/02/17 13:19 YOZ2873 SSU-C01) Document 01/02/17 15:44 ZZF8111 (Rec: 01/02/17 15:44 FLB4661 SSU-M01) Document 01/02/17 19:02 EZP8470 (Rec: 01/02/17 19:02 CVL9554 SSU-C11) Document 01/02/17 21:02 FFW8504 (Rec: 01/02/17 21:03 YJY2163 SSU-C11) Document 01/02/17 22:00 NQK3593 (Rec: 01/02/17 22:38 DYO9532 SSU-C11) Document 01/02/17 23:11 [id number] (Rec: 01/02/17 23:11 LYQ8817 SSU-M01) Document 01/03/17 01:13 [id number] (Rec: 01/03/17 01:13 AXB8367 SSU-M02) Document 01/03/17 04:07 [id number] (Rec: 01/03/17 04:07 HJF2480 SSU-C19) Document 01/03/17 06:00 SOL1507 (Rec: 01/03/17 06:05 EXW0375 SSU-C19) Document 01/03/17 07:41 KQC4785 (Rec: 01/03/17 07:41 [id number] SSU-C19) Document 01/03/17 09:39 [id number] (Rec: 01/03/17 09:39 [id number] SSU-C10) - Physical Exam General Physical Exam Comment: Vomiting copiously into a receptacle, miserable General: No Cyanosis, No Anemia, No Jaundice, No Clubbing Lungs and Chest: Yes: Chest Expansion Full, Chest Expansion Symetrica, Percussion Note Resonant, Vessicular Breath Sounds. No: Crackles, Wheezes Heart Rate and Rhythm: Regular JVP: Not Elevated Additional Cardiovascular: Yes: Normal Heart Sounds. No: Heart Murmur, Pedal Edema Abdominal Exam: Yes: Soft, Bowel Sounds Present. No: Distention, Abdominal Tenderness, Guarding, Rebound Tenderness Results - Results Lab Results: Laboratory Results - last 24 hr 01/02/17 01/02/17 01/02/17 11:40 16:52 20:35 WBC RBC Hgb Hct MCV MCH MCHC RDW Plt Count MPV Neut % (Auto) Lymph % (Auto) Meagher % (Auto) Eos % (Auto) Baso % (Auto) Absolute Neuts (auto) Absolute Lymphs (auto) Absolute Monos (auto) Absolute Eos (auto) Absolute Basos (auto) Absolute Nucleated RBC Nucleated RBC % INR (Anticoag Therapy) Sodium Potassium Chloride Carbon Dioxide Anion Gap BUN Creatinine Est GFR ( Amer) Est GFR (Non-Af Amer) BUN/Creatinine Ratio Glucose POC Glucose (mg/dL) 211 H 140 H 114 H Calcium 01/03/17 01/03/17 01/03/17 06:15 06:15 06:15 WBC 9.9 RBC 3.11 L Hgb 8.7 L Hct 26 L MCV 84 MCH 28 MCHC 33 RDW 16 H Plt Count 208 MPV 8 Neut % (Auto) 68.8 Lymph % (Auto) 22.4 L Meagher % (Auto) 7.9 Eos % (Auto) 0.6 Baso % (Auto) 0.3 Absolute Neuts (auto) 6.8 Absolute Lymphs (auto) 2.2 Absolute Monos (auto) 0.8 Absolute Eos (auto) 0.1 Absolute Basos (auto) 0 Absolute Nucleated RBC 0.01 Nucleated RBC % 0.1 INR (Anticoag Therapy) 1.25 H Sodium 132 L Potassium 3.8 Chloride 99 L Carbon Dioxide 27 Anion Gap 6 BUN 10 Creatinine 0.45 L Est GFR ( Amer) 181.0 Est GFR (Non-Af Amer) 140.7 BUN/Creatinine Ratio 22.2 H Glucose 190 H POC Glucose (mg/dL) Calcium 8.2 L 01/03/17 07:33 WBC RBC Hgb Hct MCV MCH MCHC RDW Plt Count MPV Neut % (Auto) Lymph % (Auto) Meagher % (Auto) Eos % (Auto) Baso % (Auto) Absolute Neuts (auto) Absolute Lymphs (auto) Absolute Monos (auto) Absolute Eos (auto) Absolute Basos (auto) Absolute Nucleated RBC Nucleated RBC % INR (Anticoag Therapy) Sodium Potassium Chloride Carbon Dioxide Anion Gap BUN Creatinine Est GFR ( Amer) Est GFR (Non-Af Amer) BUN/Creatinine Ratio Glucose POC Glucose (mg/dL) 198 H Calcium Assessment - Problem List Assessment: Patient Problems Left knee pain (Acute) Nausea & vomiting (Acute) Status post total left knee replacement (Acute) Type 2 diabetes mellitus, uncontrolled (Acute) Hypertension (Chronic) Morbid obesity with BMI of 45.0-49.9, adult (Chronic) Osteoarthritis (Chronic) Sleep apnea (Chronic) Plan: Status post total left knee replacement (Acute)Left knee pain (Acute) Nausea & vomiting (Acute) She is opioid naieve. She is taking oxycodone orally. She is vomiting despite ondansetron and a scopolamine patch. I suspect she will be responsive to the analgesic effects of tramadol, but not have as much nausea. I will therefore stop oxycodone and start tramadol. She will stay in the hospital today as she is actively vomiting. Type 2 diabetes mellitus, uncontrolled (Acute) Improved control with increased insulin Hypertension (Chronic) At target BP Morbid obesity with BMI of 45.0-49.9, adult (Chronic) secondary diagnosis Osteoarthritis (Chronic) secondary diagnosis Sleep apnea (Chronic) secondary diagnosis I spoke [place] and with her Kory Lau, who is a friend of my family. I explained the above to them both and they agree with the plan.
[2017-01-03] MEDS: Enoxaparin(*) 30 MG/0.3 ML SYR SUBCUT SCH (12:31)
--- NOTE | 2017-01-03 13:10 | DS ---
DISCHARGE SUMMARY: DATE OF ADMISSION: 12/31/16 DATE OF DISCHARGE: 01/03/17 PROVIDER: Joana Stoddard MD * (DICTATED BY MARTHA BARRAZA) ADMITTING DIAGNOSIS: Severe end-stage osteoarthritis of the left knee. DISCHARGE DIAGNOSIS: Severe end-stage osteoarthritis of the left knee, status post left total knee arthroplasty. SECONDARY DIAGNOSES: Obesity, sleep apnea, and diabetes. HISTORY OF PRESENT ILLNESS: Ms. Lau is a 61-year-old female who had complaints of left knee pain that were ongoing secondary to advanced osteoarthritis. She failed conservative management and elected to proceed with a left total knee arthroplasty. HOSPITAL COURSE: On 12/31/16, the patient was admitted to [facility] and underwent a successful left total knee arthroplasty by Dr. Stoddard. She recovered briefly in the postanesthesia care unit and was transferred to the short- stay surgical unit in stable condition. On postop day 1, the patient was able to stand at bedside without significant discomfort. Her pain was well controlled with oral and IV pain medication. She did experience some nausea; however, this was relieved with antiemetics. Her H and H on postop day 1 was 9.9 and 31, INR 0.99 with 6 mg of Coumadin the night before. Postop day 2 , the patient was able to participate more in physical therapy and walk a longer distance with a rolling walker. She was able to go up and down a couple of stairs as well. Pain was controlled with oral pain medications only. H and H was 9.3 and 29, INR 1.22 with 8 mg of Coumadin previously. Postop day 3, the patient was found stable for discharge home and was comfortable with this plan. She was able to participate in physical therapy prior to discharge as well. H and H on postop day 3 had some slight acute blood loss anemia 8.7 and 26, INR 1.25 with 8 mg of Coumadin previously. DISCHARGE CONDITION: Stable. DISCHARGE MEDICATIONS: The patient will go home with: 1. Percocet 5/325 one to two tabs p.o. q.4 to 6 hours p.r.n. pain. 2. OxyContin 10 mg extended release 1 tab p.o. b.i.d. for 5 days. 3. Zofran oral dissolving tablet 4 mg p.o. q.6 hours p.r.n. nausea. 4. Colace 100 mg p.o. b.i.d. p.r.n. constipation. 5. Coumadin 8 mg p.o. on 01/03/17. She will have a redraw of her INR by [facility] on 01/04/17. She will resume her home medications of: 1. Lantus 20 units subcutaneously at bedtime. 2. Micardis 40 mg p.o. q.a.m. 3. Metformin 1000 mg p.o. b.i.d. 4. Lovastatin 40 mg p.o. b.i.d. 5. Humalog 20 units subcutaneous in the morning. DISCHARGE INSTRUCTIONS: She will be weightbearing as tolerated with the use of a rolling walker. She is understanding that she may shower normally and wash the wound. She is not to submerge the wound in a hot tub, bathtub, or swimming pool. She will apply a dry dressing as needed. She will have home visiting nurse for INR checks and wound care. She will also have home physical therapy. She will follow up in the office 10 to [address] Stoddard. She is understanding to call the office with any questions, concerns, calf pain, swelling, fever greater than 101.5, redness, and swelling about the knee or incision. She is understanding to go directly to the emergency room with any chest pain or shortness of breath. MARTHA BARRAZA [id number]/[facility] #: [id number] BLADIMIR
[2017-01-03] MEDS: traMADol TAB* 50 MG PO PRN ×3 (13:21→22:26)
[2017-01-03] MEDS: Warfarin TAB(*) 4 MG PO SCH (17:05)
[2017-01-03] MEDS ORDERED: Scopolomine PATCH Remove* 1 NOTE MISC PATCH OFF SCH (20:00)
[2017-01-03] MEDS: Insulin GLARGINE(*) 1 UNITS UNIT SUBCUT SCH (22:25)
[2017-01-04] MEDS: traMADol TAB* 50 MG PO PRN ×2 (06:18→11:43)
[2017-01-04 07:48] LABS: Hematocrit 26 % (35-47); Hemoglobin 8.4 g/dl (12.0-16.0)
[2017-01-04] MEDS: Insulin LISPRO* 1 UNITS UNIT SUBCUT SCH ×2 (08:26→08:29)
[2017-01-04] MEDS: Docusate CAP* 100 MG PO SCH (08:30)
[2017-01-04] MEDS: Atorvastatin* 20 MG TAB PO SCH (08:30)
[2017-01-04] MEDS: metFORMIN* 1,000 MG TAB PO SCH (08:30)
[2017-01-04] MEDS: Losartan TAB* 25 MG PO SCH (08:30)
--- NOTE | 2017-01-04 09:47 | PN ---
Progress Note - Progress Note Date of Service: 01/04/17 SOAP: Subjective: []Patient was still having N/V yesterday so was not discharged as planned. Her pain medication got changed to Tramadol and she is tolerating this medication well. She feels ready to go home and is requesting shower before she leaves today. Denies nausea, SOB, dizziness. Pain managed well with Tramadol. Objective: [] Vital Signs Temp 97.9 F 01/04/17 07:36 Pulse 66 01/04/17 07:36 Resp 16 01/04/17 08:18 BP 104/60 01/04/17 07:36 Pulse Ox 92 01/04/17 07:36 Intake & Output 01/03/17 01/04/17 01/04/17 18:59 06:59 18:59 Intake Total 540 360 Output Total 750 0 500 Balance -210 360 -500 Intake: Oral 540 360 Output: Urine 550 0 500 Emesis 200 Other: Estimated Void Large # Bowel Movements 2 Estimated Stool Amount Small # Voids 1 Laboratory Results - last 24 hr 01/03/17 01/03/17 01/03/17 12:16 16:57 21:40 Hgb Hct INR (Anticoag Therapy) POC Glucose (mg/dL) 165 H 99 211 H 01/04/17 01/04/17 01/04/17 07:19 07:20 07:21 Hgb 8.4 L Hct 26 L INR (Anticoag Therapy) 1.41 H POC Glucose (mg/dL) 183 H Left knee incision benign calf NT and soft +DF/PF left ankle sensation intact Assessment: []s/p Left total knee arthroplasty Nausea and vomiting- resolved Plan: []PT/PT this am May shower Coumadin 6 mg today before discharge Follow up as scheduled with Dr. Stoddard
[2017-01-04] MEDS: Enoxaparin(*) 30 MG/0.3 ML SYR SUBCUT SCH (11:35)
[2017-01-04] MEDS ORDERED: Warfarin TAB(*) 6 MG PO ONE (12:00)
[2017-01-04 12:24] VITALS: BP 124/54
[2017-01-06] MEDS ORDERED: Scopolomine PATCH Remove* 1 NOTE MISC PATCH OFF SCH (10:00)
== END 2017-01-04 13:15 | disposition home health service (06) | DRG 470 ==
LOC: AA 08:25 → SSU 14:55
PROVIDERS: ADMIT Orthopaedic Surgery Adult Reconstructive Orthopaedic Surgery; ATTEND Orthopaedic Surgery Adult Reconstructive Orthopaedic Surgery
PROC: 0SRD0J9 Replacement of Left Knee Joint with Synthetic Substitute, Cemented, Open Approach (ICD-10-PCS; principal; 2016-12-31 11:00)
DX: M17.12 Unilateral primary osteoarthritis, left knee (principal); Z68.42 Body mass index [BMI] 45.0-49.9, adult; E11.65 Type 2 diabetes mellitus with hyperglycemia; E66.01 Morbid (severe) obesity due to excess calories; D62 Acute posthemorrhagic anemia; I10 Essential (primary) hypertension; R11.2 Nausea with vomiting, unspecified; G47.33 Obstructive sleep apnea (adult) (pediatric); M25.762 Osteophyte, left knee; Z88.0 Allergy status to penicillin; Z88.5 Allergy status to narcotic agent; Z80.49 Family history of malignant neoplasm of other genital organs; Z88.8 Allergy status to other drugs, medicaments and biological substances; Z79.4 Long term (current) use of insulin
CPT/HCPCS: 36415; 80048; 85014; 85018; 85025; 85610; 88305; 88311; 94760; A9270-GY; C1776; J0780; J1240; J1650; J2250; J2270; J2405; J2704; J2765

== ENCOUNTER 2018-05-10 05:38 | Inpatient (IN) | payer OTHER ==
--- NOTE | 2018-05-04 21:30 | HP ---
HISTORY AND PHYSICAL: DATE OF ADMISSION/SURGERY: 05/10/18 DATE OF OFFICE VISIT: 05/02/18 SURGEON: Joana Stoddard MD * (DICTATED BY MARTHA MAKI) PROCEDURE: Right total knee arthroplasty. CHIEF COMPLAINT: Right knee pain. HISTORY OF PRESENT ILLNESS: Ms. Lau is a 62-year-old female with end-stage osteoarthritis of the right knee. She has failed conservative treatment and elected to proceed with surgery. PAST MEDICAL HISTORY: High cholesterol, diabetes, and sleep apnea. PAST SURGICAL HISTORY: Left total knee arthroplasty. CURRENT MEDICATIONS: 1. Metformin 500 mg 2 tabs twice a day. 2. Lovastatin 40 mg twice a day. 3. Lantus. 4. Telmisartan 40 mg daily. 5. Voltaren gel as needed. 6. Victoza 1.2 mg daily. 7. Iron and vitamin C. ALLERGIES: PENICILLIN and CODEINE. FAMILY HISTORY: Cancer and stroke. SOCIAL HISTORY: She is a 62-year-old female. She lives with her . She does not smoke or use drugs. Uses occasional alcohol. REVIEW OF SYSTEMS: A complete 14-point review of systems was reviewed with the patient, was positive for diabetes. She denies history of DVT, PE, hepatitis, HIV, or anesthesia problems. PHYSICAL EXAMINATION GENERAL: She is well developed, well nourished, in no acute distress. VITAL SIGNS: She stands 4 feet 10 inches tall, weighs 210 pounds. Her blood pressure is 124/66. Her heart rate is 84. HEENT: Normocephalic, atraumatic. NECK: Supple. No palpable lymph nodes. PULMONARY: The lungs are clear to auscultation bilaterally. CARDIO: Regular rate and rhythm. Strong S1, S2. ABDOMEN: Soft, nontender, nondistended. NEUROLOGIC: She is alert and oriented x3. MUSCULOSKELETAL: Right lower extremity, the skin is intact. There are no open wounds or abrasions. There is a varus deformity of the right knee. Her range of motion is 10 to 120 degrees of flexion with patellofemoral crepitus. No varus or valgus disability. She has 2+ dorsalis pedis pulse, intact sensation in her lower extremity. Muscle group strengths are intact to 5/5. ASSESSMENT AND PLAN: Ms. Lau is a 62-year-old female with end-stage osteoarthritis of the right knee. She has failed conservative treatment and elected to proceed with a right total knee arthroplasty. The surgery is scheduled for 05/10/[address] Stoddard discussed the risks and benefits of the surgery at today's visit and all of her questions were answered. She will follow up with Dr. Stoddard 2 weeks after the surgery. MARTHA MAKI [id number]/[facility] #: [id number] MTDBriana
[~2018-05-10 05:38] MED LIST changes: -Sodium Citrate/Citric Acid* 15 ML UDC PO ONE; +Tranexamic Acid 1,000 MG in NS 0.9% 50 ML* (outpatient use) IV SCH
[2018-05-10] MEDS ORDERED: Clindamycin 900 MG/D5W BAG(*) 900 MG/50 ML BAG IVPB ONE (06:04)
[2018-05-10] MEDS ORDERED: Insulin REGULAR(*) 1 UNITS UNIT ONE (07:21)
[2018-05-10] MEDS ORDERED: fentaNYL* 50 MCG/ML 2 ML VIAL (100 MCG VIAL) ONE ×2 (07:26→13:04)
[2018-05-10] MEDS ORDERED: Midazolam* 1 MG/ML 5 ML VIAL (5 MG) ONE (07:26)
[2018-05-10] MEDS ORDERED: Bupivacaine 0.5% PF 10 ML VIAL INJ ONE ×2 (07:28→08:14)
[2018-05-10] MEDS ORDERED: ROPIVACAINE 5 MG/ML 30 ML BTL (0.5%) ONE (07:31)
[2018-05-10] MEDS ORDERED: Propofol* 10 MG/ML 20 ML BTL ONE ×2 (08:10→09:33)
[2018-05-10] MEDS ORDERED: Bupivacaine 0.5% SDV PF* 30ML VIAL ONE (08:11)
[2018-05-10] MEDS ORDERED: oxyCODONE/Acetamin 5/325 MG* TAB PO PRN ×3 (08:50→10:27)
[2018-05-10] MEDS ORDERED: Acetaminophen TAB* 325 MG PO PRN (08:50)
[2018-05-10] MEDS ORDERED: Ondansetron INJ* 2 MG/ML VIAL IV PRN (08:50)
[2018-05-10] MEDS ORDERED: Ibuprofen TAB* 600 MG PO PRN (08:50)
[2018-05-10] MEDS ORDERED: HYDROmorphone INJ1* 1 MG/ML SYRINGE IV PRN (08:50)
[2018-05-10] MEDS ORDERED: Naloxone* 0.4 MG/ML 1 ML VIAL IV PRN (08:50)
[2018-05-10] MEDS ORDERED: diPHENhydraMINE IV* 50 MG/ML 1 ml VIAL (BENADRYL) IV PRN (10:27)
[2018-05-10] MEDS ORDERED: Ondansetron TAB* 4 MG PO PRN (10:27)
[2018-05-10] MEDS ORDERED: Polyethylene Glycol 3350* 17 GM PACKET PO PRN (10:27)
[2018-05-10] MEDS ORDERED: Bisacodyl SUPP* 10 MG SUPP PR PRN (10:27)
[2018-05-10] MEDS ORDERED: oxyCODONE TAB* 5 MG TAB PO PRN (10:27)
[2018-05-10] MEDS ORDERED: Magnesium Hydroxide LIQ* 30 ML UDC PO PRN (10:27)
[2018-05-10] MEDS: fentaNYL* 50 MCG/ML 2 ML VIAL (100 MCG VIAL) IV PRN ×2 (13:05→13:12)
[2018-05-10] MEDS ORDERED: Ondansetron INJ* 2 MG/ML VIAL ONE (14:20)
[2018-05-10] MEDS ORDERED: oxyCODONE TAB* 5 MG TAB ONE (14:24)
[2018-05-10] MEDS: Morphine VIAL* 4 MG/ML VIAL (1 ml vial) IV PRN ×4 (15:06→23:49)
[2018-05-10] MEDS: Acetaminophen TAB* 325 MG PO SCH ×2 (15:14→20:13)
--- NOTE | 2018-05-10 15:18 | PN ---
Progress Note - Progress Note Date of Service: 05/10/18 Note: POD 0 sp right total knee arthroplasty. DF/PF intact, DP2+, sensation intact distally. Denies CP or SOB. She is on lovenox bridge to coumadin for DVT prophylaxis, no history of blood clot. Previously she had a LTK done for which she had a prolonged hospital stay due to poor control of pain and post op vomiting. She reports oxycodone to have caused the vomiting. Tramadol was able to control her pain a few days out, but not initially. She can use hydrocodone/apap and tramadol for pain control for now. I will leave the option for oxycodone for breakthrough pain but it should be avoided as able. I will also order her a scopolamine patch, she has a standing PRN zofran order
[2018-05-10] MEDS ORDERED: HYDROcodone/ACETAMIN 5-325 MG* 1 TAB PO PRN (15:19)
[2018-05-10] MEDS ORDERED: Scopolamine 1.5 mg* PATCH TRANSDERM SCH (16:00)
[2018-05-10] MEDS: Clindamycin 600 MG IVPREMIX(* 600 MG/50 ML SDV IV SCH (16:27)
[2018-05-10] MEDS: HYDROcodone/ACETAMIN 5-325 MG* 1 TAB PO PRN ×2 (16:27→21:45)
[2018-05-10] MEDS ORDERED: metFORMIN* 1,000 MG TAB PO SCH (17:00)
[2018-05-10] MEDS ORDERED: Warfarin TAB(*) 6 MG PO ONE (17:00)
[2018-05-10] MEDS: traMADol TAB* 50 MG PO PRN (20:11)
[2018-05-10] MEDS: Docusate CAP* 100 MG PO SCH (20:12)
[2018-05-10] MEDS: Atorvastatin* 10 MG TAB PO SCH (20:13)
[2018-05-10] MEDS: Insulin GLARGINE(*) 1 UNITS UNIT SUBCUT SCH (20:20)
[2018-05-10] MEDS: Magnesium Hydroxide LIQ* 30 ML UDC PO SCH (20:21)
--- NOTE | 2018-05-10 23:23 | OP ---
DATE OF OPERATION: 05/10/18 - ROOM #346 DATE OF : 51 SURGEON: Joana Stoddard MD NON DESTRUCTIVE TESTING SUPERVISOR: MARTHA Foster. Ms. Baeza did help throughout the procedure with preparation of the leg, wound retraction, manipulation of the knee and wound closure. ANESTHESIOLOGIST: Dr. Ricardo. ANESTHESIA: Spinal. PRE-OP DIAGNOSIS: Severe end-stage degenerative osteoarthritis of the right knee joint. POST-OP DIAGNOSIS: Severe end-stage degenerative osteoarthritis of the right knee joint. OPERATIVE PROCEDURE: Right total knee arthroplasty. INDICATIONS: Ms. Lau is a 62-year-old female with years of increasingly severe right knee pain. Radiographs showed [id number] arthritis. She failed conservative treatment with antiinflammatories, pain medication, intraarticular injections, and physical therapy. Due to continued pain and decreased quality of life, she elected to undergo right total knee arthroplasty. Informed consent was obtained from the patient. She understood the risks of surgery included, but were not limited to, bleeding, infection, damage to nearby structures, continued pain, need for further surgery, intraoperative fracture, nerve palsy, hardware failure or loosening, knee stiffness, loss of motion, stroke, heart attack, blood clot, and . She wished to proceed. TOURNIQUET TIME: 59 minutes. COMPLICATIONS: None. ESTIMATED BLOOD LOSS: 200 cc. SPECIMEN: Bone and cartilage from the right knee joint sent to Pathology. HARDWARE USED: This is a cemented Iqbal and Nephew total knee arthroplasty hardware, 2 packages of Simplex bone cement with a femur and Oxinium right size 2 Legion posterior stabilized femoral component. For the tibia, a Yi II size 2 right tibial baseplate. For the insert, an 11-mm posterior stabilized articular insert, size 1/2, and for the patella, a 29-mm 3-peg all poly patella with 7.5 thickness. INTRAOPERATIVE FINDINGS: The patient was noted to have severe end-stage arthritis with complete loss of cartilage in all 3 compartments. She had a significant varus bone in the distal tibia. DESCRIPTION OF PROCEDURE: Ms. Lau was identified in the preanesthesia unit. Her right lower extremity was marked as the correct operative side. Informed consent was signed and placed in the chart. The patient was taken to the operating room and placed under spinal anesthesia. A Denton catheter was placed. Tourniquet was placed on the right thigh. Right lower extremity was prepped and draped in the usual sterile fashion. A preop time-out was made to correctly identify the patient's side and site. Appropriate perioperative antibiotics were given within 1 hour of incision. A tourniquet was inflated and total tourniquet time for this procedure was 59 minutes. A midline incision was made with a 10 blade and carried down to the extensor mechanism. A new 10 blade was used to make a standard medial parapatellar arthrotomy. Patella was subluxed laterally. Electrocautery was used to subperiosteally elevate the soft tissue off the superomedial tibia to the mid sagittal plane. The knee was flexed up. The anterior horn of the lateral meniscus and ACL were sharply released. A drill was used to enter the distal femur. Intramedullary distal femoral cutting guide was pinned on the distal femur. An oscillating saw was used to make the distal femoral cut. Next , the external rotation guide was pinned on the distal femur. Distal femur was sized to a size 2. A size 2 cutting jig was pinned on the distal femur. Oscillating saw was used to make the 4 chamfer cuts. The PCL was completely released. The tibia was subluxed anteriorly. Intramedullary tibial cutting guide pinned on the proximal tibia. Oscillating saw was used to make the proximal tibial cut and the bone was carefully removed. The knee was brought out into full extension. Medial and lateral ligaments were well balanced. Any remaining osteophytes along the medial tibial plateau were carefully removed with a rongeur. Flexion and extension gaps were well balanced. The knee was flexed up. Lamina collet gluer was placed both medially and laterally. Any remaining meniscus was carefully removed using electrocautery. Tibial tray and drop augusta were placed and once again confirmed a satisfactory tibial cut. Next, a size 2, right femoral trial was impacted onto the distal femur. This had excellent fit. The box for the posterior stabilized implant was prepared using a reamer and box-cut osteotome. A size 2 tibial tray trial with an 11 mm insert trial was placed and the knee was taken through a range of motion. The knee had full extension to 130 degrees of flexion. There was satisfactory patellofemoral tracking. The patella was everted. 7 mm of patellar bone and cartilage were carefully removed using an oscillating saw. The patella was sized to a size 29. Size 29 trial patella with 7.5 thickness was placed and the knee was taken through a range of motion. The patellofemoral tracking was satisfactory. All trials were carefully removed. The tibia was subluxed anteriorly and sized to a size 2. Proximal tibia was prepared using a size 2 keel punch. All bony cut surfaces were copiously irrigated with sterile saline and dried. The final implants were cemented into place, starting with the tibia, followed by the femur and lastly the patella. An 11-mm insert trial was placed and the knee was brought out into full extension. The tourniquet was turned down at 59 minutes. The electro-cautery was used to obtain meticulous hemostasis. The wound was copiously irrigated with sterile saline. Once the cement had fully cured, the insert trial was removed. Any excess cement was removed from around the capsule and hardware. Final insert chosen was an 11-mm posterior stabilized articular insert, size 1/2. This was locked into position on the tibial tray. Stability of the insert was checked and rechecked and noted to be stable. The extensor mechanism was closed using interrupted #1 Vicryls. The rest of the incisions was closed in a layered fashion using 0 and 2-0 Vicryls. The skin was closed using running 3-0 nylon suture. Sterile Xeroform, 4x4s, and Webril were used to cover the incision. Dayron wrap and cold pack were placed over this. The patient's anesthesia was reversed without difficulty. She was taken to the PACU in stable condition. Intended weightbearing will be weightbearing as tolerated. Intended DVT prophylaxis will be Coumadin with a Lovenox bridge. [id number]/[facility] #: [id number] BLADIMIR
[2018-05-10] MEDS: Cyclobenzaprine TAB* 10 MG PO PRN (23:48)
[2018-05-11] MEDS: Clindamycin 600 MG IVPREMIX(* 600 MG/50 ML SDV IV SCH ×2 (00:08→07:31)
[2018-05-11] MEDS: HYDROcodone/ACETAMIN 5-325 MG* 1 TAB PO PRN ×5 (03:13→22:54)
[2018-05-11] MEDS: Acetaminophen TAB* 325 MG PO SCH ×3 (03:22→20:09)
[2018-05-11] MEDS: traMADol TAB* 50 MG PO PRN ×3 (05:37→20:31)
[2018-05-11 05:58] LABS: Hematocrit 29 % (35-47); Hemoglobin 9.5 g/dl (12.0-16.0); Platelet Count 256 10^3/ul (150-450)
[2018-05-11 06:04] LABS: INR 1.02 (0.77-1.02)
[2018-05-11 06:21] LABS: EGFR Non-African American 127.1 (>60)
[2018-05-11] MEDS: Magnesium Hydroxide LIQ* 30 ML UDC PO SCH ×2 (07:37→20:31)
[2018-05-11] MEDS: Docusate CAP* 100 MG PO SCH ×2 (07:37→20:31)
[2018-05-11] MEDS: Atorvastatin* 10 MG TAB PO SCH ×2 (07:37→20:31)
[2018-05-11] MEDS ORDERED: Telmisartan (NF) 40 MG TAB PO SCH (09:00)
[2018-05-11] MEDS ORDERED: Dextrose 50% Syringe 50 ML* 25 GM/50 ML SYRINGE IV PUSH PRN (09:16)
--- NOTE | 2018-05-11 10:30 | PN ---
Progress Note - Progress Note Date of Service: 05/11/18 SOAP: Subjective: []Patient was seen and examined at bedside. She feels well today, her pain is well controlled. Overnight pain was present but she feels it was still tolerable. She has has one episode of nausea since yesterday which was resolved with scop patch and zofran. Overall she is happy with control of her pain and nausea. Denies any chest pain, shortness of breath, dizziness. Progressing towards goals with PT, she has walked but has not done stairs yet. No history of blood clot. Objective: []General: Well appearing, NAD RLE: Dressing CDI without surrounding erythema, thigh is soft, DF/PF intact, sensation intact distally, DP2+ Calves supple and nontender without erythema, edema or palpable cords Assessment: []POD 1 sp right total knee arthroplasty Plan: []WBAT PT/OT Lovenox bridge to Coumadin. Coumadin 8 mg today Hyponatremia: patient is asymptomatic, discussed with Dr Thomas, stop IV fluids, resume normal diet and recheck sodium tomorrow. Vital Signs Temp 98.4 F 05/11/18 07:29 Pulse 69 05/11/18 07:29 Resp 16 05/11/18 08:00 BP 140/74 05/11/18 07:29 Pulse Ox 96 05/11/18 08:00 Intake & Output 05/10/18 05/11/18 05/11/18 18:59 06:59 18:59 Intake Total 2150 1705 305 Output Total 250 875 Balance 1900 830 305 Intake: IV Fluids 2150 985 ABX - CLINDAMYCIN 55 CLINDAMYCIN 900 MG 50 LR 2100 930 IVPB 55 ABX - CLINDAMYCIN 55 Oral 720 250 Output: Denton 875 Estimated Blood Loss 250 Laboratory Last Values Hgb 9.5 g/dl (12.0-16.0) L 05/11/18 05:31 Hct 29 % (35-47) L 05/11/18 05:31 Plt Count 256 10^3/ul (150-450) 05/11/18 05:31 MPV 8.0 fL (7.4-10.4) 05/11/18 05:31 INR (Anticoag Therapy) 1.02 (0.77-1.02) 05/11/18 05:31 Sodium 126 mmol/L (135-145) L 05/11/18 05:31 Potassium 4.1 mmol/L (3.5-5.0) 05/11/18 05:31 Chloride 93 mmol/L (101-111) L 05/11/18 05:31 Carbon Dioxide 27 mmol/L (22-32) 05/11/18 05:31 Anion Gap 6 mmol/L (2-11) 05/11/18 05:31 BUN 9 mg/dL (6-24) 05/11/18 05:31 Creatinine 0.49 mg/dL (0.51-0.95) L 05/11/18 05:31 Est GFR ( Amer) 153.8 (>60) 05/11/18 05:31 Est GFR (Non-Af Amer) 127.1 (>60) 05/11/18 05:31 BUN/Creatinine Ratio 18.4 (8-20) 05/11/18 05:31 Glucose 228 mg/dL (70-100) H 05/11/18 05:31 POC Glucose (mg/dL) 229 mg/dL (70-100) H 05/11/18 07:29 Calcium 8.8 mg/dL (8.6-10.3) 05/11/18 05:31
[2018-05-11] MEDS ORDERED: Enoxaparin(*) 40 MG/0.4 ML SYR SUBCUT SCH (12:00)
[2018-05-11] MEDS: Insulin LISPRO* 1 UNITS UNIT SUBCUT SCH ×3 (12:26→20:38)
[2018-05-11] MEDS ORDERED: Losartan TAB* 25 MG ONE (13:52)
[2018-05-11] MEDS: Losartan TAB* 25 MG PO SCH (13:55)
[2018-05-11] MEDS ORDERED: Warfarin TAB(*) 4 MG PO ONE (17:00)
[2018-05-11] MEDS: Insulin GLARGINE(*) 1 UNITS UNIT SUBCUT SCH (20:37)
[2018-05-12] MEDS: Cyclobenzaprine TAB* 10 MG PO PRN (01:06)
[2018-05-12] MEDS: traMADol TAB* 50 MG PO PRN ×3 (02:40→19:04)
[2018-05-12] MEDS: Acetaminophen TAB* 325 MG PO SCH ×3 (02:51→18:59)
[2018-05-12 05:49] LABS: Hematocrit 29 % (35-47); Hemoglobin 9.7 g/dl (12.0-16.0); Mean Platelet Volume 7.7 fL (7.4-10.4); Platelet Count 252 10^3/ul (150-450)
[2018-05-12 05:52] LABS: INR 1.15 (0.77-1.02)
[2018-05-12 06:02] LABS: EGFR Non-African American 147.8 (>60)
[2018-05-12] MEDS: HYDROcodone/ACETAMIN 5-325 MG* 1 TAB PO PRN ×4 (06:05→22:20)
--- NOTE | 2018-05-12 07:45 | PN ---
Progress Note - Progress Note Date of Service: 05/12/18 SOAP: Subjective: resting comfortably. pain well controlled with current pain regimen. denies calf pain/SOB Objective: Laboratory Last Values Hgb 9.7 g/dl (12.0-16.0) L 05/12/18 05:31 Hct 29 % (35-47) L 05/12/18 05:31 Plt Count 252 10^3/ul (150-450) 05/12/18 05:31 MPV 7.7 fL (7.4-10.4) 05/12/18 05:31 INR (Anticoag Therapy) 1.15 (0.77-1.02) H 05/12/18 05:31 Sodium 126 mmol/L (135-145) L 05/12/18 05:31 Potassium 4.0 mmol/L (3.5-5.0) 05/12/18 05:31 Chloride 91 mmol/L (101-111) L 05/12/18 05:31 Carbon Dioxide 28 mmol/L (22-32) 05/12/18 05:31 Anion Gap 7 mmol/L (2-11) 05/12/18 05:31 BUN 5 mg/dL (6-24) L 05/12/18 05:31 Creatinine 0.43 mg/dL (0.51-0.95) L 05/12/18 05:31 Est GFR ( Amer) 178.9 (>60) 05/12/18 05:31 Est GFR (Non-Af Amer) 147.8 (>60) 05/12/18 05:31 BUN/Creatinine Ratio 11.6 (8-20) 05/12/18 05:31 Glucose 173 mg/dL (70-100) H 05/12/18 05:31 POC Glucose (mg/dL) 238 mg/dL (70-100) H 05/11/18 20:28 Calcium 8.6 mg/dL (8.6-10.3) 05/12/18 05:31 Vital Signs Temp Pulse Resp BP Pulse Ox 98.1 F 83 20 185/70 99 05/12/18 04:21 05/12/18 04:21 05/12/18 06:05 05/12/18 04:21 05/12/18 04:21 PE: able to dorsi flex/plantar flex, 2+ DP pulse and intact sensation Assessment: s/p right TKA; POD#2 Plan: 1) COUMADIN/LOVENOX for DVT prophylaxis 2) SCD'S 3) PT/OT 4) Home tomorrow
[2018-05-12] MEDS: Losartan TAB* 25 MG PO SCH (09:20)
[2018-05-12] MEDS: Apixaban* 2.5 MG TAB PO SCH ×2 (09:20→22:20)
[2018-05-12] MEDS: metFORMIN* 1,000 MG TAB PO SCH ×2 (09:21→16:44)
[2018-05-12] MEDS: Atorvastatin* 10 MG TAB PO SCH ×2 (09:21→22:19)
[2018-05-12] MEDS: Insulin LISPRO* 1 UNITS UNIT SUBCUT SCH ×4 (09:21→22:21)
[2018-05-12] MEDS: Docusate CAP* 100 MG PO SCH ×2 (09:21→22:26)
[2018-05-12] MEDS: Magnesium Hydroxide LIQ* 30 ML UDC PO SCH ×2 (09:26→22:26)
--- NOTE | 2018-05-12 10:05 | PN ---
Progress Note - Progress Note Date of Service: 05/12/18 Note: Addendum: We have DC'd the Coumadin and are starting Eliquis BID for DVT prophylaxis. She will receive one more dose of Lovenox at 1200 today. Plan to D/C home tomorrow.
[2018-05-12] MEDS: Insulin GLARGINE(*) 1 UNITS UNIT SUBCUT SCH (22:25)
[2018-05-13] MEDS: Acetaminophen TAB* 325 MG PO SCH ×2 (05:20→09:11)
[2018-05-13] MEDS: HYDROcodone/ACETAMIN 5-325 MG* 1 TAB PO PRN ×3 (05:21→13:23)
[2018-05-13 05:33] LABS: Hematocrit 29 % (35-47); Hemoglobin 9.5 g/dl (12.0-16.0); Mean Platelet Volume 7.8 fL (7.4-10.4); Platelet Count 256 10^3/ul (150-450)
[2018-05-13 05:39] LABS: INR 1.18 (0.77-1.02)
--- NOTE | 2018-05-13 07:06 | PN ---
Progress Note - Progress Note Date of Service: 05/13/18 SOAP: Subjective: Pt. is alert, reports pain is controlled. Objective: Vital Signs: Temp Pulse Resp BP Pulse Ox 98.1 F 84 16 127/60 97 05/12/18 19:39 05/12/18 19:39 05/13/18 05:21 05/12/18 19:39 05/12/18 19:39 Laboratory Results - last 24 hr 05/12/18 05/12/18 05/13/18 11:21 16:48 05:06 Hgb 9.5 L Hct 29 L Plt Count 256 MPV 7.8 INR (Anticoag Therapy) POC Glucose (mg/dL) 212 H 178 H 05/13/18 05:06 Hgb Hct Plt Count MPV INR (Anticoag Therapy) 1.18 H POC Glucose (mg/dL) RLE - dressing c/d/i. distally nvi. Assessment: 62 yo F pod 3 s/p RTKA Plan: wbat rle pt eliquis for dvt proph plan d/c to home today with vns
[2018-05-13] MEDS: Docusate CAP* 100 MG PO SCH (07:40)
[2018-05-13] MEDS: Magnesium Hydroxide LIQ* 30 ML UDC PO SCH (07:41)
[2018-05-13 08:21] LABS: EGFR Non-African American 130.2 (>60)
[2018-05-13 09:04] VITALS: BP 132/63
[2018-05-13] MEDS: Apixaban* 2.5 MG TAB PO SCH (09:12)
[2018-05-13] MEDS: Atorvastatin* 10 MG TAB PO SCH (09:12)
[2018-05-13] MEDS: metFORMIN* 1,000 MG TAB PO SCH (09:12)
[2018-05-13] MEDS: Losartan TAB* 25 MG PO SCH (09:12)
[2018-05-13] MEDS: Insulin LISPRO* 1 UNITS UNIT SUBCUT SCH ×2 (09:13→13:23)
[2018-05-13] MEDS ORDERED: Enoxaparin(*) 40 MG/0.4 ML SYR SUBCUT ONE (12:00)
[2018-05-13] MEDS ORDERED: Scopolamine PATCH Remove* 1 NOTE MISC PATCH OFF ONE (16:00)
== END 2018-05-13 13:51 | disposition home health service (06) | DRG 470 ==
LOC: AA 05:38 → SSU 13:42 → UNDODISIN 05-13 13:15
PROVIDERS: ADMIT Orthopaedic Surgery Adult Reconstructive Orthopaedic Surgery; ATTEND Orthopaedic Surgery Adult Reconstructive Orthopaedic Surgery
PROC: 0SRC069 Replacement of Right Knee Joint with Oxidized Zirconium on Polyethylene Synthetic Substitute, Cemented, Open Approach (ICD-10-PCS; principal; 2018-05-10 07:30)
DX: M17.11 Unilateral primary osteoarthritis, right knee (principal); E87.1 Hypo-osmolality and hyponatremia; M25.761 Osteophyte, right knee; E78.00 Pure hypercholesterolemia, unspecified; E11.9 Type 2 diabetes mellitus without complications; G47.30 Sleep apnea, unspecified; Z79.84 Long term (current) use of oral hypoglycemic drugs; Z79.4 Long term (current) use of insulin; Z79.899 Other long term (current) drug therapy; Z88.5 Allergy status to narcotic agent; Z88.0 Allergy status to penicillin; Z80.9 Family history of malignant neoplasm, unspecified; Z82.3 Family history of stroke
CPT/HCPCS: 36415; 80048; 85014; 85018; 85049; 85610; A9270-GY; G8987-GO-CJ; G8988-GO-CJ; G8989-GO-CJ; J1650; J2250; J2270; J2405; J2704; J2795; J3010

== ENCOUNTER → 2019-02-13 10:02 | Day surgery (SDC) | payer MEDICARE, OTHER ==
[~2019-02-13 10:02] MED LIST changes: -Buffered Lidocaine 0.9% SYRIN* 5 ML/SYR SYRINGE INTRADERM ONE; +Buffered Lidocaine 1% SYRIN* 1 ML/SYRINGE INTRADERM ONE; +Bupivacaine 0.5%* 50 ML MDV VIAL ONE; +Clindamycin 900 MG/D5W BAG(*) 900 MG/50 ML BAG IVPB ONE; +Dexamethasone TAB* 4 MG ONE; +DiMENhydriNATE IV* 50 MG/ML VIAL IV PUSH ONE; +DiMENhydriNATE IV* 50 MG/ML VIAL ONE; +Famotidine IV* 10 MG/ML 2 ML (20 mg) IV ONE; +Famotidine IV* 10 MG/ML 2 ML (20 mg) ONE; +Gentamicin ADULT (*) 240 MG in NS 0.9% 100 ML* 100 ML IVPB ONE; +HYDROmorphone INJ1* 1 MG/ML SYRINGE IV PRN; +KETAMINE HCL* 50 MG/ML 10 ML VIAL ONE; +Ketorolac INJ* 30 MG/ML 1 ML VIAL ONE; +Lactated Ringers 1000 ML Bag* 1,000 ML IV SCH; +Lidocaine 2% PF * 5 ML VIAL ONE; +Midazolam* 1 MG/ML 5 ML VIAL (5 MG) ONE; +Naloxone* 0.4 MG/ML 1 ML VIAL IV PRN; +Ondansetron ODT TAB* 4 MG ONE; +Ondansetron ODT TAB* 4 MG PO ONE; +PROCHLORPERAZINE INJ 5 MG/ML 2 ML VIAL IV PRN; +Propofol* 10 MG/ML 20 ML BTL ONE; +Rocuronium* 10 MG/ML VIAL ONE; +Scopolamine 1.5 mg* PATCH ONE; +Scopolamine 1.5 mg* PATCH TRANSDERM SCH; +Scopolamine PATCH Remove* 1 NOTE MISC PATCH OFF SCH; +Sugammadex * 500 MG/5 ML VIAL IV PUSH ONE; -Tranexamic Acid 1,000 MG in NS 0.9% 50 ML* (outpatient use) IV SCH; +fentaNYL* 50 MCG/ML 2 ML VIAL (100 MCG VIAL) IV PRN; +fentaNYL* 50 MCG/ML 2 ML VIAL (100 MCG VIAL) ONE; +oxyCODONE/Acetamin 5/325 MG* TAB PO PRN
[2019-02-13 16:40] VITALS: BP 103/63
--- NOTE | 2019-02-13 21:44 | OP ---
DATE OF OPERATION: 02/13/19 - [facility] DATE OF : 51 ATTENDING SURGEON: Osmar Ontiveros MD [employer] HOU[employer] OPERATOR: Akanksha Stephens RN PRE-OP DIAGNOSIS: Symptomatic gallstones. POST-OP DIAGNOSIS: Symptomatic gallstones. OPERATIVE PROCEDURE: Robotic cholecystectomy. INDICATIONS FOR PROCEDURE: Symptomatic cholelithiasis, cholecystitis. Risks including but not limited to bleeding, infection, injury to intraabdominal contents, including the bowel, bile ducts, and liver explained to the patient who seemed to understand, agreed to the procedure, and all questions were answered. DESCRIPTION OF PROCEDURE: The patient was taken to the operating room and placed supine. Preoperative antibiotics were given. After the successful induction of general endotracheal anesthesia, the abdomen was prepped and draped in sterile fashion. A 5-mm left upper quadrant trocar was placed under direct visualization of the camera using a bladeless Optiview trocar. Pneumoperitoneum was achieved at 15 mmHg. Camera was placed in the abdomen. The abdomen was scanned. There was no obvious injury from trocar placement. Pneumoperitoneum was achieved at 15 mmHg. An umbical robotic 8 mm and two right side abdominal 8-mm trocars were placed. The 5-mm trocar was then replaced with an 8-mm trocar. The abdomen was scanned. No obvious injuries were noted. The patient was placed in the reverse Trendelenburg position and tilted slightly towards the left. The robot was brought in and docked. Fundus of the gallbladder was grasped and retracted up in and over the liver. The cystic duct was identified, isolated, clipped, and divided. There was no large cystic artery noted. Some very small branches were divided using cautery and the gallbladder was removed from the hepatic bed with the scissors and cautery. It was placed into an Endobag and removed through the umbilical port site. The right upper quadrant was inspected. EBL minimal, hemostasis was intact. The pneumoperitoneum was released from the abdomen. The trocars were removed. The skin was closed with Monocryl and glue. The patient tolerated the procedure well. She was extubated and taken to the recovery in stable condition. [id number]/[facility] #: [id number] MTDD
== END | disposition home or self-care (01) ==
LOC: OR 10:02
PROVIDERS: ATTEND Surgery
DX: K81.1 Chronic cholecystitis (principal); E11.9 Type 2 diabetes mellitus without complications; Z79.84 Long term (current) use of oral hypoglycemic drugs; M19.90 Unspecified osteoarthritis, unspecified site; E66.9 Obesity, unspecified; Z68.41 Body mass index [BMI] 40.0-44.9, adult; E78.5 Hyperlipidemia, unspecified; G47.30 Sleep apnea, unspecified
CPT/HCPCS: 47562; S2900; 88304; A9270-GY; J1240; J1580; J1885; J2250; J2704; J3010; J3490; J8540